=== PATIENT | female | born 1975 | race Caucasian/White ===

== ENCOUNTER 2022-11-12 15:53 | Emergency (ER) | payer OTHER, SELFPAY ==
[2022-11-12 16:02] VITALS: BP 131/82; PULSE 79; RESP 14; TEMP 36.2; O2SAT 100; BMI 21.3
--- NOTE | 2022-11-12 16:15 | ED_ITS ---
HPI - Animal Bite General Time Seen by Provider: 16:15 Date Seen: 11/12/22 Chief Complaint: Animal Bite Stated Complaint: Cat bite during cat/dog fight Time Seen by Provider: 11/12/22 16:05 Source: patient, RN notes reviewed and old records reviewed Mode of arrival: ambulatory Limitations: no limitations History of Present Illness HPI narrative: 47-year-old female who comes in today with a cat bite to the left hand. Patient cat and dog were fighting and she was bitten by the cat. This occurred last night, today she comes in with increased pain and also because she spoke to her link trainer maintenance worker who recommended being seen. Related Data Home Medications Medication Instructions Recorded Confirmed duloxetine 30 mg capsule,delayed 30 mg PO QDAY 12/20/21 11/12/22 release iud vaginal 12/20/21 ferrous sulfate 325 mg (65 mg 325 mg PO DAILY 11/12/22 11/12/22 iron) tablet Allergies Allergy/AdvReac Type Severity Reaction Status Date / Time No Known Drug Allergies Allergy Verified 12/20/21 18:54 PFSH PFSH Social History Smoking Status: Never smoker How often do you have a drink containing alcohol: never AUDIT-C Alcohol total score: 0 Non-prescribed substance use: denies use Exam Narrative: Exam Narrative: General: well nourished , NAD Head: Atraumatic and normocephalic ENT: External ears and external nose are normal Eyes: Conjunctiva clear, pupils are equal reactive, external ocular motions are intact Neck: Full spontaneous range of motion of the neck Lungs: No respiratory distress Musculoskeletal: Puncture wounds of the 4th and 5th fingers on the left hand. On the 5th finger these are over the proximal and middle phalanx with surrounding erythema. No swelling of the joints, no tracking erythema. No pain with passive or active flexion or extension at the MCP, DI P, or PIP joints. On the 4th finger there punctures on the dorsum and palmar surface near the PIP joint as well as near the D IP joint. Patient has a ring on this finger. There is marked swelling on the dorsum of the finger overlying the PIP joint, however no effusion and no pain with passive flexion extension of the MCP, DI P, or PIP joint of this finger. Neurologic: No gross focal neurologic deficits Skin: No rashes Psych: Mood and affect are appropriate Const: Vital Signs, click to edit/add: Vital Signs - 24 hr 11/12/22 16:02 Temperature 97.1 F L Pulse Rate [Pulse Oximeter] 79 Respiratory Rate 14 Blood Pressure [Ri ght Upper Arm] 131/82 Pulse Oximetry 100 Oxygen Delivery Me thod Room Air Course Course ED Course: Patient seen examined, prior records are reviewed. Patient presents with a cat bite that occurred yesterday. Rabies vaccinations are up-to-date for the CT and patient's tetanus is up-to-date. Puncture wounds of the 4th and 5th digits as documented above. Initially I was concerned about septic arthritis the PIP joint on the 4th finger, however no definite joint effusion and patient does not have pain with passive flexion extension of this joint. I think that the parents the joint is partly due to cellulitis around the puncture wound and also due to the fact the patient has a ring on this finger causing some constriction. Capillary refill, sensation are intact distally. I recommended cutting the ring off which patient does not want to do. We discussed risks of construction including decreased blood flow, nerve damage, or Critical strangulation with possibility of permanent injury to the finger. She still would prefer more conservative management of this. We discussed elevation and icing the finger, she should return to the emergency department immediately if the finger becomes discolored or ice increased swelling. In the meantime she should try to get the ring off. Patient will be given a dose of Zosyn in the emergency department and Augmentin for home. Vital Signs Vital signs: Initial Vital Signs Temperature 97.1 F L 11/12/22 16:02 Temperature Source Temporal Artery Scan 11/12/22 16:02 Pulse Rate 79 11/12/22 16:02 Pulse Rhythm Regular 11/12/22 16:02 Respiratory Rate 14 11/12/22 16:02 Blood Pressure 131/82 11/12/22 16:02 Blood Pressure Mean 98 11/12/22 16:02 Blood Pressure Position Sitting 11/12/22 16:02 Pulse Oximetry 100 11/12/22 16:02 Oxygen Delivery Method Room Air 11/12/22 16:02 Vital Signs Temperature 97.1 F L 11/12/22 16:02 Pulse Rate 79 11/12/22 16:02 Respiratory Rate 14 11/12/22 16:02 Blood Pressure 131/82 11/12/22 16:02 Pulse Oximetry 100 11/12/22 16:02 Oxygen Delivery Method Room Air 11/12/22 16:02 Temperature 97.1 F L 11/12/22 16:02 Pulse Rate 79 11/12/22 16:02 Respiratory Rate 14 11/12/22 16:02 Blood Pressure 131/82 11/12/22 16:02 Pulse Oximetry 100 11/12/22 16:02 Oxygen Delivery Method Room Air 11/12/22 16:02 Discharge Plan Discharge Clinical Impression: Infected cat bite of hand including fingers Patient Disposition: Home, Self-Care Condition: Stable Instructions: Animal Bite (ED), Wound Infection (DC) Additional Instructions: Keep the hand elevated and ice the finger is able. Try to eat remove your ring as soon as possible. If the finger becomes more swollen or discolored, or is severely painful, return to the emergency department to have the ring cut off. Activity Level: No Restrictions Prescriptions: No Action duloxetine 30 mg capsule,delayed release(DR/EC) 30 mg PO QDAY iud vaginal ferrous sulfate 325 mg (65 mg iron) tablet 325 mg PO DAILY Follow Up/Referrals: Provider,Not a Local [Primary Care Provider] - Stand Alone Forms: MyHealth Info Instructions
[2022-11-12] MEDS: PIPERACILLIN/TAZOBACTAM 3.375 GM in 0.9 % SODIUM CHLORIDE Mini-bag 100 ML IVPB (16:28)
== END 2022-11-12 17:05 | disposition home or self-care (01) ==
LOC: ED 16:54
PROVIDERS: Emergency Provider Family Medicine; PCP Student in an Organized Health Care Education/Training Program
DX: S61.452A Open bite of left hand, initial encounter (principal); L08.9 Local infection of the skin and subcutaneous tissue, unspecified; W55.01XA Bitten by cat, initial encounter
CPT/HCPCS: 96365; 99284; J2543

== ENCOUNTER 2023-10-02 07:31 | Outpatient (CLI) | payer OTHER, SELFPAY ==
--- OUTSIDE RECORDS SUMMARY | 2023-10-02 07:34 | XMS_ITS | Clinical Summary ---
Author Organization [facility] Address [address] [place] [address] Care Team Providers Care Electric Refrigerator Servicer Name Role Phone Corine Lozano MD Primary Care Provider Source Comments You are receiving this document as you are listed as the primary care provider,follow-up provider, or the patient has been referred to you for consultation.This is in compliance with the Medicare and[facility] Incentive [facility],which states Providers who transition their patient to another setting of careor provider of care or refers their patient to another provider of care shouldprovide summary care record for each transition of care or referral. [facility] Allerg[facility] Active Allergy Reactions Criticality Noted Date Comments Bee Venom Edema,generalized 03/18/2013 PN: swelling at site of sting Medications Medication Sig Dispensed Refills Start Date End Date Status EPINEPHrine (AUVI-Q) 0.3 MG/0.3ML injectionIndicat ions:Bee sting allergy Inject 0.3 mL intramuscularly as needed (Inject 0.3 mLs into the muscle as needed for Anaphylaxis.). 2 Each 11 03/19/2018 Active levonorgestrel (MIRENA) 20 MCG/24HR IUD 1 Each by Intrauterine route continuous. 04/10/2020 6 Active DULoxetine (CYMBALTA) 30 MG capsuleIndicatio ns:Anxiety (HRC),Emotional depression,Chron ic bilateral low back pain without sciatica Take 1 Capsule (30 mg) by mouth daily. 90 Capsule 11/19/2021 Active Active Problems Problem Noted Date Diagnosed Date Anxiety 03/19/2018 Emotional depression 03/19/2018 Chronic low back pain without sciatica 6 Resolved Problems Problem Noted Date Diagnosed Date Resolved Date Mechanical low back pain 02/05/2016 Immunizations Name Administration Dates Next Due Chicken Pox - History of Illness 1982 Flu Vac Preserv Free (3+yrs) 12/20/2009 HepA Adult (19+ yrs) 03/05/2005,05/18/1997,02/09 HepB Adult (Engerix-B, 20+ y rs, 3 dose series) 12/09/1993,06/18/1993,05/17/1993 IPV (Polio) 03/05/2005 Influenza IIV4 (Quadrivalent ) 0.5mL (49883) 11/07/2018,10/28/2016,01/14/2016 Influenza LAIV (Nasal, 2-49 yrs) 02/16/2013 Influenza Vaccine Q/LAIV Int ranasal 2-49 yrs ([facility]) 11/09/2014,12/23/2013 Influenza, Unspecified Formulation 01/23/2018 JE (JE-VAX) 07/03/2006,06/22/2006 MCV4 (Menactra) 03/05/2005 MCV4 Menveo 2m.+ (two vial) 03/18/2017 MMR 09/25/1989,12/17/1978 Moderna Monovalent 12+ 02/20/2020 OPV, Trivalent (Orimune or tOPV) 04/13/1989 Rabies 06/15/1997,05/25/1997,05/18/1997 TDAP (ADACEL) 03/02/2010 Td 03/05/2005,04/28/1994 Tdap 04/10/2020,03/02/2010 Typhoid (Typhim Vi, IM) 03/18/2017,03/18,03/05/2005,1997 YF (Yellow Fever) 03/05/2005 Family History Medical History Relation Name Comments Cancer Other Lung Relation Name Status Comments Other Social History Tobacco Use Types Packs/Day Years Used Date Smoking Tobacco: Never Smokeless Tobacco: Never Alcohol Use Standard Drinks/Week Comments Yes 3 (1 standard drink = 0.6 oz pur e alcohol) PHQ-2 Answer Date Recorded PHQ-2 Score 0 04/10/2020 Sex and Gender Information Value Date Recorded Sex Assigned at Not on file Gender Identity Not on file Sexual Orientation Not on file Last Filed Vital Signs Vital Sign Reading Time Taken Comments Blood Pressure 124/59 04/10/2020 3:12 PM CROCHET MACHINE OPERATOR Pulse 76 04/10/2020 3:12 PM CROCHET MACHINE OPERATOR Temperature 36.6 ??C (97.8 ??F) 11/29/2020 10:30 AM C DT Respiratory Rate 16 12/24/2018 9:34 AM CROCHET MACHINE OPERATOR Oxygen Saturation 100% 12/28/2015 11:44 AM CROCHET MACHINE OPERATOR Inhaled Oxygen Concentration - - Weight 62.6 kg (138 lb) 11/29/2020 10:30 AM CDT Height 170.2 cm (5' 7) 11/29/2020 10:30 AM CDT Body Mass Index 21.61 11/29/2020 10:30 AM CDT Plan of Treatment Health Maintenance Due Date Last Done Comments Colon Cancer Screening Plan Due 1977 Hep C Screening (Preventive Services) 1977 Mammogram 1977 IPV (Polio) (3 of 3 - 4-dose series) 09/02/2005 03/05/2005, 04/13/1989 Adult Preventive Visit 03/19/2019 03/19/2018, 2016 Cervical Cancer Screening 10/29/20192016, 05/02/2010, 07/23/2009, Additional history exists Cholesterol 2022 COVID-19 Vaccine ( season) 2022 01/21/2021, 02/20/2020 Influenza (#1) 2023 12/03/2020, 09/2 10/2018, 01/23/2018, Additional history exists Zoster/Shingles (1 of 2) 09/02/2027 DTaP/Tdap/Td (5 - Tdap) 04/10/2030 04/11/19, 03/02/2010, 03/02/2010, Additional history exists HepB Completed 12/09/1993, 06/09, 05/17/1993 HepA Aged Out 03/05/2005, 10/1997, 02/09/1997 No longer eligible based on patient's age to complete this topic HIV Screening (Preventive Services) Completed 07/23/2009 MCV4 Aged Out 03/18/2017, 03/05/2005 No lo nger eligible based on patient's age to complete this topic Hib Aged Out No longer eligi ble based on patient's age to complete this topic Pneumococcal Aged Out No longer eligi ble based on patient's age to complete this topic Procedures Procedure Name Priority Date/Time Associated Diagnosis Comments ANATOMICAL PATH LIQUID BASED Routine 10/28/2016 10:11 AM CDT HIV ANTIBODY Routine 07/23/2009 10:06 AM CDT from Last 3 Months or Most Recently Relevant to Health Maintenance Results * Pap Smear (10/28/2016 10:11 AM CDT) 10/28/2016 10:1 1 AM CDT Narrative SONIA BERNA - 10/31/2016 2:04 PM CDT FINAL GYNECOLOGICAL CYTOLOGY REPORT Pathology #: [id number] ?Date Obtained: 10/28/2016 ? Date Received: 10/29/2016 INTERPRETATION/RESULTS: Negative for Intraepithelial Lesion or Malignancy. SPECIMEN ADEQUACY: Satisfactory for Evaluation. ??Endocervical cells/transformation zone component present. Verified on 10/31/2016 ??by MARCUS ANDREW(ASCP) (electronic signature) CLINICAL NOTES: ?Abnormal bleeding: No, LMP: 07/23/2012, Menstrual status: None ?Apply, Current form of therapy: IUD LIQUID BASED PAP SMEAR SPECIMEN TYPE: ?ROUTINE CERVICAL PAP TEST PLEASE NOTE: The pap smear is a screening test designed to aid in the detection of cervical cancer and its precursor lesions. It is not a diagnostic procedure and should not be used as the sole means of detecting cervical cancer. Both false-positive and false-negative reports may occur. Performed at [facility], [address] [place] [id number] Corine Lozano MD LAB_[address] [facility] [address] [place] [id number] * HIV ANTIBODY (07/23/2009 10:06 AM CDT) HIV 1/HIV 2 Non-React No normal range HP CONVERSION 07/23/2009 10:0 6 AM CDT Nieves Rojas APRN, CNM LAB_1 HP CONVERSION from Last 3 Months or Most Recently Relevant to Health Maintenance Care Teams Electric Refrigerator Servicer Relationship Specialty Start Date End Date Corine Lozano MD [address] [place] [address] PCP - General Family Practice 01/26/15
--- OUTSIDE RECORDS SUMMARY | 2023-10-02 07:34 | XMS_ITS | Encounter Summary ---
Author Organization [facility] Address [address] [place] [address] Care Team Providers Care Telephone Exchange Operator Name Role Phone Corine Lozano MD Primary Care Provider [phone] Encounter Details Date Type Department Care Team (Late st Contact Info) Description 02/08/2016 Correspondence None No Primary/Referring, Phy CHIROPRACTIC PT LIABILITY PAW Social History Tobacco Use Types Packs/Day Years Used Date Smoking Tobacco: Never Smokeless Tobacco: Never Alcohol Use Standard Drinks/Week Comments Yes 0 (1 standard drink = 0.6 oz pure alcohol) Alcoholic Drinks/day: Freq:Never; Sex and Gender Information Value Date Recorded Sex Assigned at Not on file Gender Identity Not on file Sexual Orientation Not on file documented as of this encounter Plan of Treatment Not on file documented as of this encounter Visit Diagnoses Not on filedocumented in this encounter Care Teams Telephone Exchange Operator Relationship Specialty Start Date End Date Corine Lozano MD [address] [place] [address] PCP - General Family Practice 01/26/15 documented as of this encounter
--- OUTSIDE RECORDS SUMMARY | 2023-10-02 07:34 | XMS_ITS | Encounter Summary ---
Author Organization [facility] Address [address] [place] [address] Care Team Providers Care Knife Changer Name Role Phone Corine Lozano MD Primary Care Provider Encounter Details Date Type Department Care Team (Late st Contact Info) Description 02/05/2015 Correspondence None No Primary/Referring, Phy CHIROPRACTIC PT LIABILITY PAW Social History Tobacco Use Types Packs/Day Years Used Date Smoking Tobacco: Never Smokeless Tobacco: Never Alcohol Use Standard Drinks/Week Comments Yes 0 (1 standard drink = 0.6 oz pur e alcohol) Sex and Gender Information Value Date Recorded Sex Assigned at Not on file Gender Identity Not on file Sexual Orientation Not on file documented as of this encounter Plan of Treatment Not on file documented as of this encounter Visit Diagnoses Not on filedocumented in this encounter Care Teams Knife Changer Relationship Specialty Start Date End Date Corine Lozano MD [facility] [place] [address] PCP - General Family Practice 01/26/15 documented as of this encounter
--- OUTSIDE RECORDS SUMMARY | 2023-10-02 07:34 | XMS_ITS | Clinical Summary ---
Author Organization [facility] Address [place], [place] [address] Care Team Providers Care Can Striper Name Role Phone Magda Clements Primary Care Provider [phone] Allergies Active Allergy Reactions Criticality Noted Date Comments Bee Venom Protein (Honey Bee) Anaphylaxis High 02/24 Medications Medication Sig Dispensed Refills Start Date End Date Status levonorgestrel intrauterine device (MIRENA) 20 mcg/24 hours (5 yrs) 52 mg IUD Inject 1 Each intrauterine. Active EPINEPHrine (EPIPEN) 0.3 mg/0.3 mL injection Inject 0.3 mg intramuscular. 03/19/2018 Active durable medical equipment (DME)Indications:Martita sed nondisplaced fracture of proximal third of scaphoid of right wrist with routine healing, subsequent encounter Comfort form wrist thumb right XS 1 Each 02/13/2020 Active DULoxetine (CYMBALTA) 30 mg Delayed-release capsuleIndications:D epression, recurrent (HC) Take 2 Capsules (60 mg) by mouth once daily. 180 Capsule 3 07/14/2023 Active polyethylene glycol-electrolyte (GOLYTELY) 236-22.74-6.74 -5.86 gram suspensionIndication s:Encounter for screening colonoscopy Drink 2 liters the day before the procedure and 2 liters 6 hours prior to procedure. 4000 mL 09/11/2023 Active ketoconazole 2 % creamIndications:Malcolm orrheic dermatitis Apply a thin layer twice daily as needed to the face up to 2 weeks. Stop the cream once rash resolves. 30 g 11 09/29/2023 Active hydrocortisone 2.5 % creamIndications:Malcolm orrheic dermatitis Apply topically to affected area(s) two times daily. Apply to the face twice daily up to 2 weeks. Stop once rash resolves. 30 g 2 09/29/2023 Active Encounters Date Type Department Care Team Description 09/29/2023 1:30 PM CDT Office Visit [facility] [address] [facility] [address] [place] [address] Charlee Godinez PA Derm Problem (full body skin exam ) 09/29/2023 Telephone [facility] [address] [place] [address] Garth Shrestha MD Questions 09/28/2023 9:30 AM CDT Preop Visit [facility] [address] [place] [address] Magda Clements PA Preoperative Exam (Colonoscopy /10/01 /[facility]/Dr. Shrestha//) 09/28/2023 Travel 07/30/2023 3:15 PM CDT Ancillary Procedure [facility] [address] [place] [address] 07/30/2023 2:30 PM CDT Ancillary Procedure [facility] [address] [place] [address] 07/30/2023 Travel 07/20/2023 9:40 AM CDT Ancillary Procedure [facility] [address] [place] [address] 07/20/2023 Travel 07/14/2023 2:00 PM CDT Office Visit [facility] [address] [place] [address] Magda Clements PA Physical (47 Year Old/Medication Refills/Non fasting ) 07/14/2023 Telephone [facility] [address] [place] [address] Garth Shrestha MD Pre Procedure (Colonoscopy) 07/14/2023 Travel from Last 3 Months Immunizations Name Administration Dates Next Due COVID-19 vaccine (Moderna 100mcg/0.5mL) PF, MDV 02/20/2020 COVID-19 vaccine (Moderna 50 mcg/0.5mL) 12YO+ BIVALENT PF, MDV 11/06/2021 Hepatitis A (Adult) 03/05/2005,05/18/1997,1997 Hepatitis B (Adult) 12/09/1993,06/18/1993,1993 Inactivated Polio Vaccine 03/05/2005 Influenza Virus, Unspecified 01/23/2018,12/21/19 10 Influenza, IIV4 12/03/2020, 9,10/28/2016,01/13 Influenza,CCIIV4 PRESERV FREE 11/06/2021 Influenza,LAIV4 Live Intrana victor hugo (Flumist) 11/09/2014,12/23/2013,02/16/2013 Kazakh Encephalitis Sc 07/03/2006,06/22/2006 MMR 09/25/1989,12/17/1978 Meningococcal Vaccine (Menveo) 03/18/2017,2005 Oral Polio Vaccine 04/13/1989 Rabavert 06/15/1997,05/25/1997,05/18/1997 Td (Age >=7 Years) 03/05/2005,04/28/1994 Tdap 04/10/2020,03/02/2010 Typhoid (injectable) 03/18/2017,03/18/19 14,03/05/2005,05/18 Varicella Vaccine 1982 Yellow Fever 03/05/2005 Family History Medical History Relation Name Comments No Known Problems Brother 1 No Known Problems Brother 2 No Known Problems Daughter Lung cancer Father Osteoporosis Mother Ulcers Sister GI bleed No Known Problems Son Relation Name Status Comments Brother 1 Alive Brother 2 Alive Daughter Alive Father Mother Alive Sister Alive Son Alive Social History Tobacco Use Types Packs/Day Years Used Date Smoking Tobacco: Never Smokeless Tobacco: Never Tobacco Cessation:Counseling Given: Not Answered Alcohol Use Standard Drinks/Week Comments Yes 7 (1 standard drink = 0.6 oz pur e alcohol) glass of wine PHQ-2 Answer Date Recorded PHQ-2 TOTAL SCORE 3 07/14/2023 Social Connections Answer Date Recorded Frequency of Communication with Friends and Fami ly 0 07/14/2023 Financial Resource Strain Answer Date R ecorded Difficulty of Paying Living Expenses 3 07/14/2023 Difficulty of Paying Living Expenses Not on file 07/14/2023 Food Insecurity Answer Date Recorded Worried About Running Out of Food in the Last Ye ar 1 07/14/2023 Transportation Needs Answer Date Record ed Lack of Transportation (Medical) 1 07/14/2023 Housing Stability Answer Date Recorded Unable to Pay for Housing in the Last Year 1 07/14/2023 Sex and Gender Information Value Date Recorded Sex Assigned at Not on file Gender Identity Not on file Sexual Orientation Not on file Obstetrics History Last Filed Vital Signs Vital Sign Reading Time Taken Comments Blood Pressure 116/75 09/28/2023 9:32 AM CDT Pulse 73 09/28/2023 9:32 AM CDT Temperature 36.4 ??C (97.5 ??F) 09/28/2023 9:32 AM CD T Respiratory Rate 14 09/28/2023 9:32 AM CDT Oxygen Saturation 100% 09/28/2023 9:32 AM CDT Inhaled Oxygen Concentration - - Weight 67.9 kg (149 lb 9.6 oz) 09/28/2023 9:32 A M CDT Height 172.5 cm (5' 7.91) 09/28/2023 9:32 AM CD T Body Mass Index 22.8 09/28/2023 9:32 AM CDT Plan of Treatment Upcoming Encounters Date Type Department Care Team (Late st Contact Info) Description 10/02/2023 8:00 AM CDT Office Visit [facility] [address] [place] [address] Garth Shrestha MD [address] [place] [address] Health Maintenance Due Date Last Done Comments Pap test for age 21-65 1998 Colonoscopy through age 75 2022 Influenza for age 9-49 10/11/2023 , 12/03/2020, 11/07/2018, Additional history exists Depression screening for age 12+ 07/13/2024 07/14/2023, 07/14/2023, 02/24/2022 Mammogram for age 45-75 07/29/2024 07/30/2023, 07/19 BMI (ht and wt on same day) for age 18+ 09/27/2024 09/28/2023, 07/14/2023, 02/24/2022, Additional history exists Lipids for age 45-75 07/13/2028 07/14/2023 Tetanus booster 04/10/2030 04/10/2020, 02/10, 03/05/2005, Additional history exists Tdap Completed 04/10/2020, 03/02/2010 COVID-19 vaccine series Completed 12/18/19, 11/06/2021, 01/21/2021, Additional history exists HIV for age 15-65 Completed 07/14/2023 Hepatitis C screening for age 18-79 Completed 07/14/2023 Pneumococcal series for age 6-64 Aged Out No longer eligible based on patient's age to complete this topic Procedures Procedure Name Priority Date/Time Associated Diagnosis Comments US BREAST UNILATERAL RIGHT LIMITED BREN 07/30/2023 3:04 PM CDT Abnormal mammogram XR MAMMO LOLIS UNI ADDL VIEWS RIGHT BREN 07/30/2023 2:53 PM CDT Abnormal mammogram XR MAMMO LOLIS BILAT SCREEN Routine 07/20/2023 10:00 AM CDT Encounter for screening mammogram for malignant neoplasm of breast FERRITIN Routine 07/14/2023 3:31 PM CDT Iron deficiency anemia, unspecified iron deficiency anemia type VITAMIN D 25 (DEFICIENCY) Routine 07/14/2023 3:31 PM CDT Vitamin D deficiency ANTI HIV 1/2 Routine 07/14/2023 3:31 PM CDT Encounter for screening for HIV LIPID PANEL W REFLEX MEASURED LDL Routine 07/14/2023 3:31 PM CDT Lipid screening ANTI HCV Routine 07/14/2023 3:30 PM CDT Encounter for hepatitis C screening test for low risk patient GLUCOSE, RANDOM Routine 07/14/2023 3:01 PM CDT Screening for diabetes mellitus (DM) CBC W PLT NO DIFF Routine 07/14/2023 2:5 9 PM CDT Iron deficiency anemia, unspecified iron deficiency anemia type from Last 3 Months Results * US BREAST UNILATERAL RIGHT LIMITED (07/30/2023 3:04 PM CDT) Anatomical Region Laterality Modality BREASTS, Breast Right Right Ultrasound Narrative 07/31/2023 2:18 PM CDT As a result of the Cures Act, medical imaging exams and procedure reports are released immediately into your electronic medical record. ??You may view this report before your referring provider. ??If you have questions, please contact your health care provider. RIGHT BREAST ULTRASOUND 07/30/2023 PLEASE SEE [id number] FOR RIGHT DIGITAL ADDITIONAL VIEWS MAMMOGRAM OF SAME DAY. Magda HUSSEIN US * XR MAMMO LOLIS UNI ADDL VIEWS RIGHT (07/30/2023 2:53 PM CDT) Anatomical Region Laterality Modality BREASTS, Breast Right Mammograph y 07/30/2023 3:59 PM CDT Impressions 07/31/2023 2:18 PM CDT Normal fibroglandular tissue. No evidence of malignancy. RECOMMENDATIONS: Annual BILATERAL screening mammography. BI-RADS Category 2: Benign Results and recommendations discussed with the patient. Dictated by: Cruz Whitaker MD @07/30/2023 3:59:37 PM/kris PATIENTS: You will also receive a letter with your examination results in an easy to read format. ??If you have questions about your results, please contact your referring provider. Narrative 07/31/2023 2:18 PM CDT As a result of the Cures Act, medical imaging exams and procedure reports are released immediately into your electronic medical record. ??You may view this report before your referring provider. ??If you have questions, please contact your health care provider. RIGHT BREAST MAMMOGRAM DIGITAL ADDITIONAL VIEWS WITH TOMOSYNTHESIS 07/30/2023 ?? RIGHT BREAST ULTRASOUND 07/30/2023 CLINICAL HISTORY: RIGHT breast mass/asymmetry. COMPARISON: 07/20/2023. TECHNIQUE: Digital RIGHT mammogram in 2 projections with computer-aided detection. Tomosynthesis was used in this interpretation. Real-time ultrasound imaging of RIGHT breast with imaging documentation. BREAST COMPOSITION: The breasts are heterogeneously dense, which may obscure small masses. ?? FINDINGS: 3D spot compression CC/MLO RIGHT breast mammogram images submitted. Decreased conspicuity of previously noted asymmetric density. No architectural distortion or suspicious mass. No suspicious calcifications. Targeted RIGHT breast ultrasound performed at 8 o'clock 6 cm from the nipple. Normal fibroglandular tissue is present. No fluid collection or mass. Magdatristan Duncankalyan PA MAMMO * XR MAMMO LOLIS BILAT SCREEN (07/20/2023 10:00 AM CDT) Anatomical Region Laterality Modality BREASTS, Breast Left, Breast Right Bilateral Mammography 07/20/2023 3:50 PM CDT Impressions 07/21/2023 6:18 AM CDT RIGHT breast asymmetry/mass. RECOMMENDATIONS: Additional mammographic views of the RIGHT breast including 3D spot-compression CC/MLO. RIGHT breast ultrasound may also be required. A member of the health care team will contact the patient to schedule the required additional imaging appointment. BI-RADS Category 0: Incomplete: Need Additional Imaging Evaluation and/or Prior Mammograms for Comparison Dictated by: Cruz Whitaker MD @07/20/2023 3:50:26 PM/kris PATIENTS: You will also receive a letter with your examination results in an easy to read format. ??If you have questions about your results, please contact your referring provider. Narrative 07/21/2023 6:18 AM CDT For Patients: As a result of the 21st Century Cures Act, medical imaging exams and procedure reports are released immediately into your electronic medical record. ??You may view this report before your referring provider. ?? If you have questions, please contact your health care provider. BILATERAL DIGITAL SCREENING MAMMOGRAM WITH COMPUTER-AIDED DETECTION AND TOMOSYNTHESIS 07/20/2023 CLINICAL HISTORY: Routine screening exam. COMPARISON: None. TECHNIQUE: Digital mammogram in CC and MLO projections including computer-aided detection (CAD). Tomosynthesis was used in this interpretation. BREAST COMPOSITION: There are scattered areas of fibroglandular density. FINDINGS: RIGHT Breast: Focal asymmetric density lower outer quadrant 5 cm from the nipple. LEFT Breast: No suspicious findings. Magda HUSSEIN MAMMO * (ABNORMAL) LIPID PANEL W REFLEX MEASURED LDL [[id number]] (07/14/2023 3:31 PM CDT) CHOLESTEROL,TOTAL 236(H) 100 - 199 mg/dL 07/14/2023 10:56 PM CDT [facility] Comment: Cholesterol, Total Reference Ranges Desirable <200 mg/dL Borderline 200-239 mg/dL High >=240 mg/dL TRIGLYCERIDES 380(H) <150 mg/dL 07/14/2023 10:56 PM CDT [facility] HDL CHOLESTEROL 45 >40 mg/dL 10:56 PM CDT [facility] NON-HDL CHOLESTEROL 191(H) <145 mg/dl 07/14/2023 10:56 PM CDT [facility] CHOL/HDL RATIO 5.24(H) <4.50 07/14/2023 10:56 PM CDT [facility] LDL CHOLESTEROL 115 <=130 mg/dL 07/14/2023 10:56 PM CDT [facility] VLDL CHOLESTEROL 76(H) <=30 mg/dL 07/14/2023 10:56 PM CDT [facility] PROVIDER ORDERED STATUS RANDOM 07/14/2023 10:56 PM CDT [facility] Blood BLOOD SPECIMEN / Unknown Venipuncture / Unknown 07/14/2023 3:31 PM CDT 07/14/2023 3:32 PM CDT Magda HUSSEIN CHEMISTRY [facility] [address] [place] [address], * VITAMIN D 25 (DEFICIENCY) (07/14/2023 3:31 PM CDT) VITAMIN D TOTAL 26.8 20.0 - 80.0 ng/mL 07/14/2023 10:56 PM CDT [facility] Blood BLOOD SPECIMEN / Unknown Venipuncture / Unknown 07/14/2023 3:31 PM CDT 07/14/2023 3:32 PM CDT Narrative [facility] - 07/14/2023 10:56 PM CDT ? Vitamin D Status Deficiency: ? <20 ng/mL Insufficiency: ?20-29 ng/mL Sufficiency: ?30-80 ng/mL Possible Toxicity: ??>80 ng/mL Based on [employer] of [employer] recommendations Biotin supplements may cause clinically significant interference for this test assay. ??If interference is suspected, it is strongly recommended that biotin is discontinued for at least one week prior to retesting. Magda HUSSEIN SEND OUTS Performing Organization Address City/[facility]/ZIP Co de Phone Number [facility] [address] [place] [address], * ANTI HIV 1/2 (07/14/2023 3:31 PM CDT) HIV-1/HIV-2 SCREEN Non-Reacti ve Non-Reacti ve 07/14/2023 11:24 PM CDT [facility] Comment:HIV-1 p24 and HIV-1/ HIV-2 Ab Not Detected. Blood BLOOD SPECIMEN / Unknown Venipuncture / Unknown 07/14/2023 3:31 PM CDT 07/14/2023 3:32 PM CDT Magda HUSSEIN SEND OUTS [facility] [address] [place] [address], * FERRITIN (07/14/2023 3:31 PM CDT) FERRITIN 24.5 15.0 - 150.0 ng/mL 07/14/2023 10:56 PM CDT [facility] Blood BLOOD SPECIMEN / Unknown Venipuncture / Unknown 07/14/2023 3:31 PM CDT 07/14/2023 3:32 PM CDT Magda HUSSEIN [facility] [address] [place] [address], [place] * ANTI HCV (07/14/2023 3:30 PM CDT) Pathologist [facility] HEPATITIS C ANTIBODY Non-Reacti ve Non-React manish 07/14/2023 10:40 PM CDT [facility] Comment:Please note, per www .CDC.gov: If a patient is known to be at high risk of HCV infection, or is symptomatic, and the physician's suspicion of HCV infection is high, HCV RNA testing is often employed and is of diagnostic value, even after an initial negative anti-HCV test result. Blood BLOOD SPECIMEN / Unknown Venipuncture / Unknown 07/14/2023 3:30 PM CDT 07/14/2023 3:30 PM CDT Magda HUSSEIN SEND OUTS Performing Organization Address City/[facility]/ZIP Co de Phone Number [facility] [address] [place] [address], [place] * GLUCOSE, RANDOM (07/14/2023 3:01 PM CDT) Pathologist [facility] GLUCOSE,RANDOM 88 70 - 139 mg/dL 07/14/2023 3:03 PM CDT [facility] Blood BLOOD SPECIMEN / Unknown Venipuncture / Unknown 07/14/2023 3:01 PM CDT 07/14/2023 3:01 PM CDT Magda HUSSEIN CHEMISTRY [facility] [address] [place] [address], [place] [phone] * CBC W PLT NO DIFF (07/14/2023 2:59 PM CDT) WHITE BLOOD COUNT 8.7 4.5 - 11.0 thou/cu mm 07/14/2023 3:03 PM CDT [facility] RED BLOOD COUNT 4.55 4.00 - 5.20 mil/cu mm 07/14/2023 3:03 PM CDT [facility] HEMOGLOBIN 13.2 12.0 - 16.0 g/dL 07/14/2023 3:03 PM CDT [facility] HEMATOCRIT 40.1 33.0 - 51.0 % 07/14/2023 3:03 PM CDT [facility] MCV 88 80 - 100 fL 07/14/2023 3:03 PM CDT [facility] MCH 29.0 26.0 - 34.0 pg 07/14/2023 3:03 PM CDT [facility] MCHC 32.9 32.0 - 36.0 g/dL 07/14/2023 3:03 PM CDT [facility] RDW 13.0 11.5 - 15.5 % 07/14/2023 3:03 PM CDT [facility] PLATELET COUNT 308 140 - 440 thou/cu mm 07/14/2023 3:03 PM CDT [facility] MPV 9.4 6.5 - 11.0 fL 07/14/2023 3:03 PM CDT [facility] Blood BLOOD SPECIMEN / Unknown Venipuncture / Unknown 07/14/2023 2:59 PM CDT 07/14/2023 2:59 PM CDT Magda HUSSEIN HEMATOLOGY [facility] [address] [place] [address], from Last 3 Months Care Teams Can Striper Relationship Specialty Start Date End Date Magda Clements PA [address] [place] [address] PCP - General Physician Wildlife Management Professor 02/24/22
--- NOTE | 2023-10-02 08:50 | W.ANESCHARGE ---
Anesthesia Charges Start Date/Time Anesthesia Start Date: 10/02/23 Anesthesia Start Time: 08:42 Stop Date/Time Anesthesia Stop Date: 10/02/23 Anesthesia Stop Time: 09:14
--- NOTE | 2023-10-02 09:48 | W.ANESCHARGE ---
Anesthesia Charges Start Date/Time Anesthesia Start Date: 10/02/23 Anesthesia Start Time: 08:42 Stop Date/Time Anesthesia Stop Date: 10/02/23 Anesthesia Stop Time: 09:14
== END 2023-10-02 07:32 | disposition home or self-care (01) ==
LOC: OP CLINIC 07:32
PROVIDERS: PCP Student in an Organized Health Care Education/Training Program; Visit Provider Internal Medicine Gastroenterology
DX: Z12.11 Encounter for screening for malignant neoplasm of colon (principal); Q43.8 Other specified congenital malformations of intestine
CPT/HCPCS: 00811; 00812; 45378; J2704